=== PATIENT | male | born 1965 | race American Indian/Alaskan Native ===

== ENCOUNTER 2019-01-07 15:33 | Emergency (ER) | payer MEDICAID, MEDICARE ==
[2019-01-07] MEDS ORDERED: IPRATROPIUM 0.02% NEBU 2.5 ML IH ONE (15:41)
[2019-01-07] MEDS ORDERED: dexAMETHasone 20 MG/5 ML VIAL IV ONE (15:41)
[2019-01-07] MEDS ORDERED: ALBUTEROL 2.5 MG/3 ML NEBU IH ONE (15:41)
--- NOTE | 2019-01-07 15:41 | Emergency Department Report ---
Blank Doc - Documentation Documentation: 53-year-old male that presents with cough, SOB and wheezing. This initial assessment/diagnostic orders/clinical plan/treatment(s) is/are subject to change based on patient's health status, clinical progression and re- assessment by fellow clinical providers in the ED. Further treatment and workup at subsequent clinical providers discretion. Patient/guardians urged not to elope from the ED as their condition may be serious if not clinically assessed and managed. Initial orders include: 1- Patient sent to [facility] for further evaluation and treatment 2- breathing treatment/steroids 3- cXR
[2019-01-07 15:44] VITALS: BP 167/97
--- NOTE | 2019-01-07 17:02 | XRay Report ---
CHEST 2 VIEWS, 01/07/2019 4:22 PM INDICATION: Cough for several weeks COMPARISON: None FINDINGS: Support devices: None Heart: The cardiac silhouette is mildly enlarged. . Lungs/pleura: Prominent bilateral perihilar interstitial markings are present. There is moderate elev ation of the right hemidiaphragm, chronicity unknown without prior studies. Additional findings: Visualized bony structures appear within normal limits. There are moderate degen erative changes throughout the thoracic spine IMPRESSION: 1. Prominent perihilar interstitial markings that are nonspecific but may suggest venous hypertension or infectious or inflammatory process. Signer Name: Lucy Oliva MD Signed: 01/07/2019 4:58 PM Workstation Name: [id number]
--- NOTE | 2019-01-07 17:43 | Emergency Department Report ---
ED Shortness of Breath HPI - General Chief Complaint: Dyspnea/Respdistress Stated Complaint: CAMMIE Time Seen by Provider: 01/07/19 15:40 Source: patient Mode of arrival: Ambulatory Limitations: No Limitations - History of Present Illness Initial Comments: 53-year-old male with history of asthma as a child presents to ED with shortness of breath, cough, wheezing times the last 3 months, worsening over the last couple of weeks. Denies fever. States has been using his inhaler as needed. MD Complaint: shortness of breath, cough -: week(s) (3) Severity: moderate Consistency: intermittent Improves With: rest, bronchodilators Worsens With: exertion Known History Of: asthma Associated Symptoms: cough - Related Data Home Oxygen Therapy: No Previous Rx's Medication Instructions Recorded Last Taken Type Albuterol Sulfate [Proventil Hfa] 2 puff IH Q4HR PRN #1 hfa.aer.ad 01/07/19 Unknown Rx Azithromycin [Zithromax Tri-Jensen] 500 mg PO QDAY 3 Days #3 tablet 01/07/19 Unknown Rx Benzonatate [Tessalon Perles] 100 mg PO Q8HR PRN #20 capsule 01/07/19 Unknown Rx predniSONE [Deltasone] 50 mg PO QDAY #5 tab 01/07/19 Unknown Rx Allergies Allergy/AdvReac Type Severity Reaction Status Date / Time No Known Allergies Allergy Unverified 01/07/19 15:34 ED Review of Systems ROS: Stated complaint: CAMMIE Other details as noted in HPI Comment: All other systems reviewed and negative Constitutional: denies: chills, fever Respiratory: cough, shortness of breath, wheezing Cardiovascular: denies: chest pain ED Past Medical Hx - Past Medical History Hx Hypertension: Yes - Surgical History Additional Surgical History: KNEE REPLACEMENT - Social History Smoking Status: Former Smoker Substance Use Type: None - Medications Home Medications: Home Medications Medication Instructions Recorded Confirmed Last Taken Type Albuterol Sulfate [Proventil Hfa] 2 puff IH Q4HR PRN #1 hfa.aer.ad 01/07/19 Unknown Rx Azithromycin [Zithromax Tri-Jensen] 500 mg PO QDAY 3 Days #3 tablet 01/07/19 Unknown Rx Benzonatate [Tessalon Perles] 100 mg PO Q8HR PRN #20 capsule 01/07/19 Unknown Rx predniSONE [Deltasone] 50 mg PO QDAY #5 tab 01/07/19 Unknown Rx ED Physical Exam - General Limitations: No Limitations General appearance: alert, in no apparent distress - Head Head exam: Present: atraumatic, normocephalic - Eye Eye exam: Present: normal appearance - ENT ENT exam: Present: mucous membranes moist - Neck Neck exam: Present: normal inspection - Respiratory Respiratory exam: Present: wheezes - Cardiovascular Cardiovascular Exam: Present: regular rate, normal rhythm - GI/Abdominal GI/Abdominal exam: Absent: distended - Extremities Exam Extremities exam: Present: normal inspection - Neurological Exam Neurological exam: Present: alert, oriented X3 - Psychiatric Psychiatric exam: Present: normal affect, normal mood - Skin Skin exam: Present: warm, dry, intact, normal color ED Course Vital Signs 01/07/19 15:42 Temperature 98.2 F Pulse Rate 94 H Respiratory 22 Rate Blood Pressure 167/97 O2 Sat by Pulse 97 Oximetry ED Medical Decision Making - Radiology Data Radiology results: report reviewed, image reviewed Critical care attestation.: If time is entered above; I have spent that time in minutes in the direct care of this critically ill patient, excluding procedure time. ED Disposition Clinical Impression: Asthma with acute exacerbation Disposition: DC-01 TO HOME OR SELFCARE Is pt being admited?: No Condition: Stable Instructions: Asthma (ED) Prescriptions: Azithromycin [Zithromax Tri-Jensen] 500 mg PO QDAY 3 Days #3 tablet Time of Disposition: 17:43
== END 2019-01-07 18:08 | disposition home or self-care (01) ==
LOC: ED 15:33
DX: J45.901 Unspecified asthma with (acute) exacerbation (principal); I10 Essential (primary) hypertension; Z79.899 Other long term (current) drug therapy; Z87.891 Personal history of nicotine dependence
CPT/HCPCS: 71046; 94640; 96374; 99284; J1100